=== PATIENT | female | born 1975 | race African-American/Black ===

== ENCOUNTER 2017-08-25 09:13 | Inpatient (IN) ==
[2017-08-25] MEDS ORDERED: Naloxone 0.4 MG/ML INJ IVP ONE (09:34)
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
[2017-08-25 09:58] LABS: Basophils # 0.1 K/mcL (0.0-0.2); Basophils % 0.5 %; Eosinophils % 0.1 %; Hematocrit 41.9 % (35.3-44.9); Hemoglobin 13.3 g/dL (11.5-15.4); Immature Granulocytes % 0.2 % (0-4); Lymphocytes # 2.8 K/mcL (0.6-4.6); Lymphocytes % 24.5 %; Mean Corpuscular HGB Conc 31.7 g/dL (31.6-35.5); Mean Corpuscular Hemoglobin 29.8 pg (28.0-33.3); Mean Corpuscular Volume 93.9 fL (83.0-100.0); Mean Platelet Volume 9.6 fL (9.4-12.4); Monocytes # 0.6 K/mcL (0.0-1.3); Monocytes % 5.5 %; Neutrophils # 7.8 K/mcL (1.6-8.9); Platelet Count 342 K/mcL (140-400); Red Blood Count 4.46 M/mcL (3.82-4.97); Red Cell Distribution Width 13.7 % (11.5-14.5); Segmented Neutrophils % 69.2 %
[2017-08-25 10:04] LABS: Amphetamine Screen,Urine Negative ng/mL (Cutoff=1000); Barbiturate Screen,Urine Negative ng/mL (Cutoff=200); Benzodiazepines Screen,Urine Positive ng/mL (Cutoff=200); Cannabinoid Screen,Urine Positive ng/mL (Cutoff = 50); Cocaine Screen,Urine Negative ng/mL (Cutoff= 300); Opiate Screen,Urine Negative ng/mL (Cutoff=300); Phencyclidine Screen,Urine Negative ng/mL (Cutoff=25)
[2017-08-25 10:09] LABS: Acetaminophen < 1.0 mcg/mL (10-30); Ethanol < 10 mg/dL (0-10); Salicylate < 5.0 mg/dL (15.0-30.0)
[2017-08-25 10:22] LABS: Alanine Aminotransferase 16 Units/L (7-52); Albumin 4.9 g/dL (3.5-5.7); Albumin/Globulin Ratio 2.3 (1.1-2.2); Alkaline Phosphatase 57 Units/L (34-104); Aspartate Amino Transferase 21 Units/L (13-39); BUN/Creatinine Ratio 16 (6-26); Bilirubin,Total 0.4 mg/dL (0.3-1.0); Blood Urea Nitrogen 11 mg/dL (6-20); Calcium 9.6 mg/dL (8.6-10.3); Carbon Dioxide 27 mEq/L (23-29); Chloride 109 mEq/L (98-107); Globulin 2.1 g/dL (2.4-3.5); Glucose 98 mg/dL (70-105); Osmolality,Calculated 289 (280-300); Potassium 3.6 mEq/L (3.5-5.1); Sodium 140 mEq/L (136-145); eGFR For African Americans > 60 (> 60); eGFR For Non-African Americans > 60 (> 60)
--- NOTE | 2017-08-25 10:45 | Emergency Department Note ---
START Narrative - START START: I examined this patient and my medical decision-making was reviewed with the Resident Physician. I agree with the documented findings, disposition and treatment plan as described except to the extent set forth below. 41-year-old female presents emergency room for possible seizure. Patient states she takes Keppra and Xanax for seizures. It is unclear she has been actually compliant with her medications as she has an entire bottle of Xanax that is empty since middle in the month. Patient lost her this morning due to cardiac arrest. It was subsequently bedtime thereafter that she had a questionable seizure activity in the bathroom at home. Patient seems very somnolent and slow to respond upon arrival but appears to be improving. We will check screening lab work. Possible discharge home. If hemodynamically stable patient can be discharged home and to resume her normal home medications. If not, patient will need be admitted for observation. She denies any homicidal or suicidal thoughts.
[2017-08-25] MEDS ORDERED: Naloxone 0.4 MG/ML INJ IVP PRN (14:02)
[2017-08-25] MEDS ORDERED: 0.9 % Sodium Chloride 1,000 ML IVC SCH (14:30)
--- NOTE | 2017-08-25 14:35 | Internal Med History&Physical ---
<Latoya De Anda - Last Filed: 08/25/17 14:53> Date of Encounter: 08/25/17 Time of Encounter: 14:28 Assessment and Plan (1) Drug overdose Current visit: Yes Status: Acute 1 in the bathroom per EMS with an empty bottle of Xanax which was prescribed on 08/23 estimated pill count 70-as well as an empty alcoholic container. She was lethargic and difficult to arouse-she also sustained seizure activity which was witnessed by family members. Tox screen was positive for benzodiazepines and marijuana. Poison control was notified per ER physician Patient was placed on suicide observation Continuous cardiac monitoring We will obtain CT of head and unsure if patient hit head Consults psychiatry Qualifiers: Encounter type: initial encounter Injury intent: accidental or unintentional Qualified Code(s): T50.901A - Poisoning by unspecified drugs, medicaments and biological substances, accidental (unintentional), initial encounter (2) Suicidal behavior Current visit: Yes Status: Acute Patient experienced traumatic event after finding -and attempting to resuscitate. She was found in the bathroom with empty bottle of Xanax missing proximally 70 pills as well as empty alcoholic container. While in the ER family reports patient crying saying she wants to go be with her . When questioned by medical staff patient denies taking medication or ideas of harming herself. We will continue with suicide observation Consult psychiatry-I did call psychiatry and discussed with nurse consult Qualifiers: Attempted self-injury: with attempted self-injury Qualified Code(s): T14.91XA - Suicide attempt, initial encounter (3) Seizures Current visit: Yes Status: Acute she has history of seizures reported last known seizure was approximately a month ago. She is followed by [facility]. Clearly she did have a colonic-type seizure today witnessed by family lasting approximately 1 minute. We will hold medications for now-due to possible benzodiazepine overdose CT of head unsure if she struck head (4) DVT prophylaxis Current visit: Yes Status: Acute [facility] Internal Medicine - H&P: HPI Chief complaint: OD SI Admitted From: Emergency Dept Plans for Post Hospital Care: Home History of present illness: Ms. Alicia Shea is a 41 year old female past medical history of seizures receiving treatment from [facility]. Information mainly obtained from medical records due to patient is very lethargic. According to ER records the patient's during the night, the patient awakened and found her and attempted to resuscitate him without success. EMS was called and upon arrival to the scene they found the patient in the bathroom with empty bottle of Xanax that was filled on 08/23 pill count approximated at 70 as well as alcohol container. Family witnessed clonic seizure activity that lasted approximately a minute prior to EMS arrival. Patient was transported to the ER for evaluation lab work was obtained which was unremarkable tox Screen was positive for marijuana and benzodiazepines. Feeling reported that patient crying and stated that she "wanted to go be with her " poison control was negative per ER. Patient was complaining of left ankle pain x-ray of foot ankle negative for any fractures. patient was placed on suicide observation, has been admitted for further workup evaluation I did review this case with Dr. Holly who agrees with plan. Presently there is no seizure activity, patient is protecting airway and is hemodynamically stable at this time. Past Med Surg Social Fam HX - Past Medical History Medical history: hyperlipidemia, hypertension Psychiatric history: anxiety, ADHD, bipolar - Past Surgical History Surgical History: appendectomy, , hysterectomy - Social History Smoking Status: Current every day smoker Smokeless Tobacco Status: No Alcohol use: none Drug use: unknown, marijuana - Additional Family History Additional family history: unknown Internal Medicine - H&P: Meds Alprazolam [Xanax] 2 mg PO TID 08/25/17 [History] Dextroamphetamine/Amphetamine [Adderall 30 mg Tablet] 30 mg PO QAM 08/25/17 [ History] 3 Allergy/AdvReac Type Severity Reaction Status Date / Time ciprofloxacin [From Cipro] Allergy Rash Verified 04/21/16 16:03 codeine AdvReac Itching Verified 04/21/16 16:03 hydrocodone AdvReac Itching Verified 04/21/16 16:03 Penicillins AdvReac Itching Verified 04/21/16 16:03 sulfamethoxazole AdvReac Itching Verified 04/21/16 16:03 [From Bactrim] trimethoprim [From Bactrim] AdvReac Itching Verified 04/21/16 16:03 ROS unobtainable: due to mental status All Systems PM: A 10-system review of systems was performed and is negative for pertinent findings except as documented above in the HPI. - Constitutional Vitals: Temp Pulse Resp BP Pulse Ox 98.5 F 102 12 116/70 100 08/25/17 09:16 08/25/17 10:49 08/25/17 10:49 08/25/17 10:49 08/25/17 10:49 General appearance: Present: A&O X 1 Exam: lethargic but arouses to verbal stimuli - Head Head exam: Present: atraumatic, normocephalic - Respiratory Respiratory exam: Present: CTAB. Absent: accessory muscle use, rales, rhonchi, wheezes - Cardiovascular Cardiovascular exam: Present: RRR, +S1, +S2. Absent: diastolic murmur, gallop, rubs, systolic murmur - Extremities Exam Extremities exam: Present: tenderness, radial pulses palpable and symmetrical Additional comments: Swelling to left ankle with ecchymosis - Neurological Exam Neurological exam: Present: CN II-XII intact, oriented X3, no focal deficits. Absent: pronater drift, facial droop, speech deficit - Skin Skin exam: Present: dry, intact Internal Med - H&P Results - Labs CBC & Chem 7: 08/25/17 09:38 08/25/17 09:38 - EKG Data EKG shows normal: sinus rhythm - Diagnostic Studies Other Images Additional comments: Ankle X-Ray 08/25/17 09:27 IMPRESSION: 1. No acute osseous abnormality of the left ankle and foot. 2. Minimal lateral ankle soft tissue swelling. D/ / 08/25/2017 10:24:00 Sofie Parrish MD / elaine Interpreting Provider: Sofie Parrish MD Foot X-Ray 08/25/17 09:27 IMPRESSION: 1. No acute osseous abnormality of the left ankle and foot. 2. Minimal lateral ankle soft tissue swelling. D/ / 08/25/2017 10:24:00 Sofie Parrish MD / elaine Interpreting Provider: Sofie Parrish MD <Damion Holly P - Last Filed: 08/25/17 21:22> Date of Encounter: 08/25/17 Internal Medicine - H&P: HPI History of present illness: Ms. Alicia Shea is a 41 year old female All Systems PM: A 10-system review of systems was performed and is negative for pertinent findings except as documented above in the HPI. - Constitutional Vitals: Temp Pulse Resp BP Pulse Ox 98.6 F 96 15 107/69 98 08/25/17 21:07 08/25/17 21:07 08/25/17 21:07 08/25/17 21:07 08/25/17 21:07 Internal Med - H&P Results - Labs CBC & Chem 7: 08/25/17 09:38 08/25/17 09:38 - Attending Attestation I examined this patient and my medical decision-making was reviewed with the Resident Physician/SERVICE SPECIALIST. I agree with the documented findings, disposition and treatment plan as described except to the extent set forth below. 41/female Admitted with benzodiazepine accidental drug overdose. Undergoing stressful condition at home. Poison control contacted and we will follow the recommendations. Noted suicidal behavior Patient is alert oriented 3 and very tearful for her loss. She is pink sleep from emergency room. Once medically stable/clear. She needs to go to [facility]A for further evaluation
[2017-08-26 05:48] LABS: Basophils # 0.1 K/mcL (0.0-0.2); Basophils % 0.7 %; Eosinophils # 0.1 K/mcL (0.0-0.6); Eosinophils % 0.6 %; Hemoglobin 12.1 g/dL (11.5-15.4); Immature Granulocytes % 0.3 % (0-4); Immature Platelets 2.6 % (1.1-6.1); Lymphocytes # 2.8 K/mcL (0.6-4.6); Lymphocytes % 29.5 %; Mean Corpuscular HGB Conc 32.7 g/dL (31.6-35.5); Mean Corpuscular Hemoglobin 30.6 pg (28.0-33.3); Mean Corpuscular Volume 93.4 fL (83.0-100.0); Mean Platelet Volume 9.5 fL (9.4-12.4); Monocytes # 0.7 K/mcL (0.0-1.3); Monocytes % 6.9 %; Neutrophils # 5.9 K/mcL (1.6-8.9); Platelet Count 320 K/mcL (140-400); Red Blood Count 3.96 M/mcL (3.82-4.97); Red Cell Distribution Width 13.6 % (11.5-14.5)
[2017-08-26] MEDS ORDERED: *HR* Enoxaparin 40 MG/0.4 ML SYRINGE SQ SCH (06:00)
[2017-08-26 06:08] LABS: BUN/Creatinine Ratio 13 (6-26); Blood Urea Nitrogen 9 mg/dL (6-20); Calcium 8.7 mg/dL (8.6-10.3); Carbon Dioxide 26 mEq/L (23-29); Chloride 111 mEq/L (98-107); Glucose 122 mg/dL (70-105); Magnesium 2.1 mg/dL (1.6-2.6); Osmolality,Calculated 296 (280-300); Potassium 3.4 mEq/L (3.5-5.1); Sodium 143 mEq/L (136-145); eGFR For African Americans > 60 (> 60); eGFR For Non-African Americans > 60 (> 60)
[2017-08-26 08:04] VITALS: BP 114/77
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
--- NOTE | 2017-08-26 13:54 | Discharge Summary ---
Date of Encounter: 08/26/17 Time of Encounter: 13:40 - Discharge Diagnosis (1) Drug overdose Priority: Primary Status: Acute Qualifiers: Encounter type: initial encounter Injury intent: accidental or unintentional Qualified Code(s): T50.901A - Poisoning by unspecified drugs, medicaments and biological substances, accidental (unintentional), initial encounter (2) Suicidal behavior Priority: Primary Status: Ruled-out Qualifiers: Attempted self-injury: with attempted self-injury Qualified Code(s): T14.91XA - Suicide attempt, initial encounter (3) DVT prophylaxis Priority: Secondary Status: Acute (4) Major depressive disorder Priority: Secondary Status: Chronic Qualifiers: Major depression recurrence: recurrent Active/Remission status: currently active Major depression episode severity: moderate Qualified Code(s): F33.1 - Major depressive disorder, recurrent, moderate (5) Anxiety Priority: Secondary Status: Chronic - Discharge Medications Home Medications: Alprazolam [Xanax] 2 mg PO TID 08/25/17 [History] Dextroamphetamine/Amphetamine [Adderall 30 mg Tablet] 30 mg PO QAM 08/25/17 [ History] Allergies/Adverse Reactions: 3 Allergy/AdvReac Type Severity Reaction Status Date / Time ciprofloxacin [From Cipro] Allergy Rash Verified 04/21/16 16:03 codeine AdvReac Itching Verified 04/21/16 16:03 hydrocodone AdvReac Itching Verified 04/21/16 16:03 Penicillins AdvReac Itching Verified 04/21/16 16:03 sulfamethoxazole AdvReac Itching Verified 04/21/16 16:03 [From Bactrim] trimethoprim [From Bactrim] AdvReac Itching Verified 04/21/16 16:03 Date of admission: 08/25/17 15:05 Primary care physician: PCP NONE Consults: Psychiatry: Dr. Mota Discharging clinician: Danette Carlson Anticipated date of discharge: 08/26/17 - Patient Status Disposition: Home, Self-Care Condition: Good Functional capacity at discharge: independent ambulation Overall status at discharge: patient is back to baseline - Discharge Instructions Follow Up With: NONE,PCP [Primary Care Provider] - Additional Instructions: Please follow up with your primary care physician within five days after your discharge from the hospital. Please follow up with your psychiatrist and therapist within five days after your discharge from the hospital. Please seek medical help immediately if you have any thoughts of hurting yourself. - Diet and Activity Activity: resume usual activities as tolerated Diet: advance to your usual diet Hospital course: Ms. Alicia Shea is a 41 year old female with PMH Of depression, anxiety, and seizures who was admitted for drug overdose concerning for a suicide attempt. Pt was closely monitored and started on supportive care. Pt was lethargic upon arrival to the ER, which has now resolved. She was evaluated by psychiatry. Pt reported of recently losing her and was in shock. She denies taking the pills as an attempt to hurt herself. She denies any suicidal ideations. She reports of closely following with a therapist and psychiatrist. As per psych, outpatient psych follow up is recommended. Pt will be living with her mother after discharge. Pt is medically stable for discharge and has been cleared by psychiatry for discharge. - Time Spent with Patient Total time spent providing and/or coordinating discharge services: Less than 30 minutes - Constitutional Vitals: Temp Pulse Resp BP Pulse Ox 98.0 F 88 14 114/77 98 08/26/17 08:02 08/26/17 08:02 08/26/17 08:02 08/26/17 08:02 08/26/17 02:52 General appearance: Present: A&O X 3, no acute distress, obese - Head Head exam: Present: atraumatic, normocephalic - Eye Eye exam: Present: conjuntiva pink, sclera anicteric - Respiratory Respiratory exam: Present: CTAB. Absent: accessory muscle use, rales, rhonchi, wheezes - Cardiovascular Cardiovascular exam: Present: RRR, +S1, +S2. Absent: diastolic murmur, gallop, rubs, systolic murmur - GI/Abdominal GI/Abdominal exam: Present: normal bowel sounds, soft, no peritoneal signs. Absent: distended, tenderness - Extremities Exam Extremities exam: Present: warm, radial pulses palpable and symmetrical. Absent : calf tenderness, cyanotic, pedal edema - Neurological Exam Neurological exam: Present: alert, oriented X3 - Psychiatric Psychiatric exam: Present: normal affect, normal mood
--- NOTE | 2017-08-26 16:33 | Electrocardiograph Report ---
[address] [address] Test Date: 2017-08-25 Pat Name: Jodi Shea Department: 103 Room: 3B Gender: F Lens Assistant: YASMIN : 1975 Requested By: Bebo Rendon Order Number: [id number] Reading MD: Stephane Garcia MD Measurements Intervals [place] Rate: 80 P: 61 MO: 169 QRS: 76 QRSD: 88 T: 61 QT: 354 QTc: 390 Interpretive Statements SINUS RHYTHM Electronically Signed On 08-26-2017 16:31:28 EST by Stephane Garcia MD
--- NOTE | 2017-08-27 15:49 | Electrocardiograph Report ---
[place] [address] Test Date: 2017-08-26 Pat Name: Jodi Shea Department: 113 Room: 3B49 Gender: F Clinic Lpn: : 1975 Requested By: Danette Carlson Order Number: [id number] Reading MD: Dwight Ramirez DO Measurements Intervals [place] Rate: 82 P: 79 VA: 154 QRS: 88 QRSD: 101 T: 68 QT: 362 QTc: 400 Interpretive Statements SINUS RHYTHM INCOMPLETE RIGHT BUNDLE BRANCH BLOCK Electronically Signed On 08-27-2017 15:47:54 EST by Dwight Ramirez DO
== END 2017-08-26 14:35 | disposition home or self-care (01) | DRG 812 ==
LOC: 3BNU 09:13 → EMEROO 09:13 → 3BNU 12:38 → SUATTDRO 15:05
PROVIDERS: ADMIT Internal Medicine; ATTEND Internal Medicine